=== PATIENT | male | born 1990 | race Caucasian/White ===

== ENCOUNTER 2018-05-30 11:04 | Emergency (ER) | payer MEDICAID, OTHER ==
[~2018-05-30] VITALS: Ht 185.4 cm; Wt 70.0 kg
[2018-05-30 11:06] VITALS: BP 125/84
== END 2018-05-30 13:08 | disposition home or self-care (01) ==
LOC: ER 11:05
DX: M25.562 Pain in left knee (principal); M25.561 Pain in right knee; X58.XXXA Exposure to other specified factors, initial encounter; Y93.42 Activity, yoga; Y92.89 Other specified places as the place of occurrence of the external cause; Y99.8 Other external cause status
CPT/HCPCS: 99281